=== PATIENT | female | born 2000 | race Caucasian/White ===

== ENCOUNTER 2021-02-22 06:30 | Emergency (ER) | payer OTHER ==
[~2021-02-22] VITALS: Ht 172.7 cm; Wt 69.8 kg
[2021-02-22] MEDS ORDERED: ALBUTEROL (06:57)
[2021-02-22 07:26] VITALS: BP 112/72
[2021-02-22] MEDS ORDERED: AMOX-424 MT (08:01)
[2021-02-22] MEDS ORDERED: IBUP-2029 MT (08:04)
[2021-02-22] MEDS ORDERED: DEXAMETHASONE 4MG TABLET PO ONE (08:15)
== END 2021-02-22 08:16 | disposition home or self-care (01) ==
LOC: ER 06:30
DX: J02.0 Streptococcal pharyngitis (principal); J45.909 Unspecified asthma, uncomplicated
CPT/HCPCS: 81025; 99283; J8540

== ENCOUNTER 2021-10-23 09:34 | Emergency (ER) | payer MEDICAID, OTHER ==
[~2021-10-23] VITALS: Ht 170.2 cm; Wt 68.0 kg
[~2021-10-23 09:34] MED LIST: ALBUTEROL; AMOX-424 MT; IBUP-2029 MT
[2021-10-23 09:43] VITALS: BP 106/72
[2021-10-23] MEDS ORDERED: ACET-2708 MT (13:14)
[2021-10-23] MEDS ORDERED: IBUP-2028 MT (13:15)
[2021-10-23] MEDS ORDERED: OXYM30SP26 BOTHNSTRLS (13:16)
[2021-10-23] MEDS ORDERED: PSEU120T56 MT (13:16)
[2021-10-23] MEDS ORDERED: LORA10TA64 MT (13:17)
== END 2021-10-23 13:23 | disposition home or self-care (01) ==
LOC: ER 09:34
DX: R09.89 Other specified symptoms and signs involving the circulatory and respiratory systems (principal); J45.909 Unspecified asthma, uncomplicated
CPT/HCPCS: 99281